=== PATIENT | female | born 1975 | race Asian ===

== ENCOUNTER 2023-02-13 19:14 | Emergency (ER) | payer MEDICAID, OTHER ==
[2023-02-13 19:36] VITALS: BP 138/89; O2SAT 98
[2023-02-13] MEDS ORDERED: KETOROLAC 30 MG/ML VIAL IM STA (20:37)
[2023-02-13] MEDS ORDERED: diphenhydrAMINE INJ 50 MG/ML VIAL IVP STA (20:37)
[2023-02-13] MEDS ORDERED: PROCHLORPERAZINE 10 MG/2 ML VIAL IVP STA ×2 (20:38→20:39)
--- NOTE | 2023-02-13 20:39 | ED Physician Documentation ---
History of Present Illness - Stated complaint Stated Complaint: MIGRAINE/VOMIT - Chief complaint Chief Complaint: Neuro - Additonal information Additional information: 48-year-old female here for evaluation of headache that began about 4 PM yesterday. Reports a longstanding history of migraines that has been resistant to previous medications such as NSAIDs or triptans. Reports she has been seen by neurologist and has had brain imaging including negative MRIs. She did take a Tylenol and a hydrocodone without resolution. She has had some nausea and vomiting. No fevers. Started taking Macrobid for an UTI yesterday. This feels similar to previous migraines. Mostly left-sided some light and noise sensitivity. Not sudden onset. No fevers falls or trauma. This headache is similar to others in the past. Review of Systems Constitutional: denies: Fever Eyes: reports: Photophobia Respiratory: reports: Reviewed and negative GI: reports: Reviewed and negative : reports: Reviewed and negative Skin: reports: Reviewed and negative Neurologic: reports: Headache. denies: Seizure, Confused, Head injury, LOC PD PAST MEDICAL HISTORY - Allergies Allergies/Adverse Reactions: Allergies Allergy/AdvReac Type Severity Reaction Status Date / Time oxycodone Allergy Headache Verified 02/13/23 19:30 PD ED PE NORMAL - General General: Alert and oriented X 3, No acute distress - Cardiac Cardiac: RRR, No murmur - Respiratory Respiratory: Clear bilaterally - Back Back: No CVA TTP - Derm Derm: Normal color, Warm and dry, No rash - Extremities Extremities: No deformity - Neuro Neuro: Alert and oriented X 3, biopharmaceutical rep 2-12 intact Eye Opening: Spontaneous Motor: Obeys Commands Verbal: Oriented GCS Score: 15 Results - Vitals Vitals: Vital Signs - 24 hr 02/13/23 19:30 Temperature 36.5 C Heart Rate 68 Respiratory 16 Rate Blood Pressure 138/89 H O2 Saturation 98 Oxygen O2 Source Room air PD Medical Decision Making - ED course Complexity details: reviewed results, re-evaluated patient, d/w patient ED course: 40-year-old female presents to the ER for evaluation of a headache over the course of this afternoon not amenable to her typical medications at home. No fevers, falls trauma nor was it sudden onset. Typical of previous migraines. History and exam not consistent with a subarachnoid or infectious etiology. She was administered Benadryl, Toradol and Compazine intravenously here in the ER and on reevaluation has good resolution of the headache. She is given a single dose of Decadron. Advised to follow closely with PCP and her neurologist to discuss long-term management of the migraines. Usual emergent return precautions worsening symptoms discussed. Departure - Departure Disposition: 01 Home, Self Care Clinical Impression: Headache Qualifiers: Headache type: unspecified Headache chronicity pattern: acute headache Intractability: not intractable Qualified Code(s): R51.9 - Headache, unspecified Condition: Stable Record reviewed to determine appropriate education?: Yes Instructions: ED Headache Migraine Comments: You are seen today for a migraine headache that did not respond to medications at home. Here in the emergency department we gave you some Toradol, Benadryl and Compazine and on reevaluation your headache is improved. I recommend that you drink plenty of fluids when you get home and get rest. We gave you medication called Decadron which typically helps prevent the migraine from reoccurring over the next several days. Encourage you to discuss your migraine management with your primary care doctor and neurologist to determine if there are some other medications that may be helpful in managing your headaches besides the hydrocodone. Return to the ER for any new or worsening symptoms, any fevers, uncontrolled vomiting, slurred speech, facial droop or focal weakness in the arms or legs. Forms: PCP List
[2023-02-13] MEDS ORDERED: DEXAMETHASONE 10 MG/ML VIAL PO STA (20:52)
[2023-02-13] MEDS ORDERED: SODIUM CHLORIDE 0.9% 1,000 ML IV STA (20:52)
[2023-02-13] MEDS ORDERED: CHERRY SYRUP 10 ML UDC PO ONE (20:52)
[2023-02-13] MEDS ORDERED: KETOROLAC 30 MG/ML VIAL IVP STA (21:00)
--- OUTSIDE RECORDS SUMMARY | 2023-02-13 21:06 | EXTERNAL MEDICAL SUMMARY RPT | Continuity of Care Document ---
Author Name Unknown Address [address] [place] [address] Phone Organization [facility] Address [address] [place] [address] Phone Results/Labs test date facility value unit notes Social History date description facility
== END 2023-02-13 21:28 | disposition home or self-care (01) ==
LOC: ED 19:14
DX: R51.9 Headache, unspecified (principal)
CPT/HCPCS: 96374; 96375; 99283; A9270; J1200